=== PATIENT | male | born 1950 | race African-American/Black ===

== ENCOUNTER 2018-06-13 15:45 | Emergency (ER) | payer MEDICARE, BC ==
[~2018-06-13] VITALS: Ht 175.3 cm; Wt 83.9 kg
[~2018-06-13 15:45] MED LIST: ADALAT20 MG ORAL; KEFLEX500 MG ORAL; LISINOPRIL10 MG ORAL; NORCO 5-325 TA1 EACH PO; SOMA350 MG PO; VICODIN ES 7.51 EACH ORAL
[2018-06-13 15:55] VITALS: BP 190/93
[2018-06-13 16:10] VITALS: BP 175/85
[2018-06-13] MEDS ORDERED: HYDROcodone/Acetamin 10/325 tab ORAL ONE (16:15)
[2018-06-13 16:52] VITALS: BP 175/85
--- NOTE | 2018-06-13 17:36 | Emergency Room Report ---
History of Present Illness General Chief Complaint: Skin Rash/Abscess Source: Patient Present Illness HPI 68-year-old male presents ED complaining of right knee pain 1 day. States that he believes it is a Gary's cyst. Had a similar Gary's cyst in his left knee many years ago and had a drain. States it feels the same way. Pain is throbbing, 7 out of 10, nonradiating. Localized to the back of the knee. Denies any difficulty walking. Denies any fevers or chills. Denies any swelling. No other aggravating relieving factors. Denies any other associated symptoms Allergies: Coded Allergies: No Known Allergies (Unverified , 01/28/13) Patient History Past Medical History: HTN Past Surgical History: none Pertinent Family History: none Social History: Denies: smoking, alcohol use, drug use Immunizations: UTD Reviewed Nursing Documentation: PMH: Agreed; PSxH: Agreed Nursing Documentation-PMH Past Medical History: No History, Except For Hx Hypertension: Yes Review of Systems All Other Systems: negative except mentioned in HPI Physical Exam Vital Signs Date Time Temp Pulse Resp B/P (MAP) Pulse Ox O2 Delivery O2 Flow Rate FiO2 06/13/18 15:48 97.9 70 18 181/92 96 Room Air 97.9 Sp02 EP Interpretation: reviewed, normal General Appearance: no apparent distress, alert, GCS 15, non-toxic Head: normocephalic Eyes: bilateral eye normal inspection, bilateral eye PERRL ENT: normal ENT inspection Neck: normal inspection Respiratory: normal inspection Cardiovascular #1: normal inspection Gastrointestinal: normal inspection Rectal: deferred Genitourinary: no CVA tenderness Musculoskeletal: back normal, gait/station normal, normal range of motion, tender - TTP to posterior aspect R knee. no fluctuance or discharge Neurologic: alert, oriented x3, responsive, motor strength/tone normal, sensory intact, speech normal Psychiatric: judgement/insight normal, memory normal, mood/affect normal, no suicidal/homicidal ideation Skin: normal inspection Lymphatic: normal inspection Medical Decision Making Diagnostic Impression: Primary Impression: Bakers cyst Qualified Codes: M71.21 - Synovial cyst of popliteal space [Gary], right knee ER Course Hospital Course 68-year-old M presents to ED complaining of R knee pain Differential diagnoses include: Fracture, dislocation, sprain, contusion Clinical course Patient placed on stretcher. After initial history, physical exam reveals an elderly male in no acute distress. On exam there is tenderness to the posterior aspect of the right knee. Full range of motion to the knee noted. No bruising or crepitus. No fluctuance or discharge. Given history of Gary's cyst I ordered ultrasound of the knee which confirmed Gary's cyst behind the right knee. Scuffs findings with patient. Patient needs orthopedic referral to have cyst properly drained. I will provide orthopedic referral. Patient states he also has his own orthopedic surgeon to follow-up with. Diagnosis - bakers cyst Stable and discharged to home. weight bear as tolerated. Followup with orthopedics. Return to ED if symptoms recur or worsen CT/MRI/US Diagnostic Results CT/MRI/US Diagnostic Results : Imaging Test Ordered: US R knee Impression popliteal cyst behind R knee Last Vital Signs Date Time Temp Pulse Resp B/P (MAP) Pulse Ox O2 Delivery O2 Flow Rate FiO2 06/13/18 16:52 98.2 79 18 175/85 99 Room Air 208.8 Status: improved Disposition: HOME, SELF-CARE Condition: Stable Referrals: NON PHYSICIAN (PCP) Joseph Mendez MD Patient Instructions: Gary Cyst Ryan Nava MD Jun 13, 2018 17:36
--- NOTE | 2018-06-16 11:09 | Diagnostic Imaging Report ---
Indication: Right knee pain Technique: Grayscale and duplex images of the popliteal fossa Comparison: none Findings: 2 x 1.1 x 0.4 cm fluid collection is seen in the popliteal fossa Impression: 2. 1.1 x 0.4 cm popliteal fossa fluid collection, likely a small Gary's cyst This agrees with the preliminary interpretation provided overnight by [facility] service.
== END 2018-06-13 16:54 | disposition home or self-care (01) ==
LOC: EMR 16:27
DX: M71.21 Synovial cyst of popliteal space [Baker], right knee (principal)
CPT/HCPCS: 99284

== ENCOUNTER 2018-08-02 21:27 | Inpatient (IN) | payer BC, MEDICARE ==
[~2018-08-02] VITALS: Ht 175.3 cm; Wt 86.2 kg
--- NOTE | 2018-08-02 21:49 | Emergency Room Report ---
History of Present Illness General Chief Complaint: Lower Extremity Injury Source: Patient, Medical Record Present Illness HPI Patient is a 68-year-old male who presented after increased right great toe. Patient gradual onset of symptoms. Patient reports having increased pain after a 50 pound bag of cement the fell onto his great toe. Injury occurred approximately 6 hours prior to arrival. He reports being a smoker. He denies pain to his other portions of his feet. He had taken Percocet prior to arrival without any improvement.He reports having up-to-date tetanus vaccine. Allergies: Coded Allergies: PENICILLINS (Verified Allergy, Unknown, 08/02/18) Patient History Reviewed Nursing Documentation: PMH: Agreed; PSxH: Agreed Nursing Documentation-PMH Past Medical History: No History, Except For Hx Hypertension: Yes Review of Systems All Other Systems: negative except mentioned in HPI Physical Exam Vital Signs Date Time Temp Pulse Resp B/P (MAP) Pulse Ox O2 Delivery O2 Flow Rate FiO2 08/02/18 21:35 98.7 70 15 197/96 92 Room Air 98.8 General Appearance: well appearing, no apparent distress, alert, GCS 15 Head: normocephalic, atraumatic ENT: hearing grossly normal, normal voice Neck: full range of motion, supple Respiratory: no respiratory distress, speaking full sentences Musculoskeletal: swelling - laceration and swelling to right great toe Neurologic: normal inspection, alert, normal gait Psychiatric: mood/affect normal Skin: other - right great toe swelling bruising, nail discoloration and thickening Medical Decision Making Diagnostic Impression: Primary Impression: Crush injury of foot Additional Impressions: Injury of right great toe Open fracture ER Course Patient presented for toe injury. The differential diagnosis included was not limited to fracture, dislocation, contusion, crush injury, toenail avulsion among others. The patient was noted to have what appears to be some baseline fungal infection to his feet. The patient noted have significant soft tissue swelling and has a fracture of the distal phalanx. The patient given IV antibiotics. Wound is left open due to infection with fungus Dr. Lozano was contacted for inpatient managment due to panel physician. Labs Test 08/02/18 23:10 White Blood Count 8.0 K/UL (4.8-10.8) Red Blood Count 4.11 M/UL (4.70-6.10) Hemoglobin 14.2 G/DL (14.2-18.0) Hematocrit 39.3 % (42.0-52.0) Mean Corpuscular Volume 96 FL (80-99) Mean Corpuscular Hemoglobin 34.6 PG (27.0-31.0) Mean Corpuscular Hemoglobin Concent 36.2 G/DL (32.0-36.0) Red Cell Distribution Width 11.2 % (11.6-14.8) Platelet Count 174 K/UL (150-450) Mean Platelet Volume 6.7 FL (6.5-10.1) Neutrophils (%) (Auto) 59.3 % (45.0-75.0) Lymphocytes (%) (Auto) 30.4 % (20.0-45.0) Monocytes (%) (Auto) 7.6 % (1.0-10.0) Eosinophils (%) (Auto) 2.1 % (0.0-3.0) Basophils (%) (Auto) 0.6 % (0.0-2.0) Prothrombin Time 10.6 SEC (9.30-11.50) Prothromb Time International Ratio 1.0 (0.9-1.1) Activated Partial Thromboplast Time 28 SEC (23-33) Sodium Level 143 MMOL/L (136-145) Potassium Level 3.5 MMOL/L (3.5-5.1) Chloride Level 105 MMOL/L (98-107) Carbon Dioxide Level 29 MMOL/L (21-32) Anion Gap 9 mmol/L (5-15) Blood Urea Nitrogen 15 mg/dL (7-18) Creatinine 0.8 MG/DL (0.55-1.30) Estimat Glomerular Filtration Rate > 60 mL/min (>60) Glucose Level 109 MG/DL (74-106) Calcium Level 8.9 MG/DL (8.5-10.1) Total Bilirubin 0.3 MG/DL (0.2-1.0) Aspartate Amino Transf (AST/SGOT) 32 U/L (15-37) Alanine Aminotransferase (ALT/SGPT) 43 U/L (12-78) Alkaline Phosphatase 77 U/L (46-116) Total Protein 7.0 G/DL (6.4-8.2) Albumin 3.4 G/DL (3.4-5.0) Globulin 3.6 g/dL Albumin/Globulin Ratio 0.9 (1.0-2.7) Last Vital Signs Date Time Temp Pulse Resp B/P (MAP) Pulse Ox O2 Delivery O2 Flow Rate FiO2 08/02/18 21:35 98.7 70 15 197/96 92 Room Air 98.8 Status: unchanged Disposition: ADMITTED INPATIENT Condition: Serious Noe Yao MD Aug 02, 2018 21:49
[2018-08-02] MEDS ORDERED: Ketorolac 60mg Inj IM ONE (22:45)
[2018-08-02] MEDS ORDERED: Bacitracin Oint UD TOPIC ONE ×2 (23:02→23:15)
[2018-08-02 23:35] LABS: BASOPHILS % (AUTO) 0.6 % (0.0-2.0); EOSINOPHILS % (AUTO) 2.1 % (0.0-3.0); HEMATOCRIT 39.3 % (42.0-52.0); HEMOGLOBIN 14.2 G/DL (14.2-18.0); LYMPHOCYTES % (AUTO) 30.4 % (20.0-45.0); MEAN CORPUSCULAR VOLUME 96 FL (80-99); MONOCYTES % (AUTO) 7.6 % (1.0-10.0); NEUTROPHILS % (AUTO) 59.3 % (45.0-75.0); PLATELET COUNT 174 K/UL (150-450); RED BLOOD COUNT 4.11 M/UL (4.70-6.10); RED CELL DISTRIBUTION WIDTH 11.2 % (11.6-14.8)
[2018-08-02 23:41] LABS: ANION GAP 9 mmol/L (5-15); BLOOD UREA NITROGEN 15 mg/dL (7-18); CALCIUM 8.9 MG/DL (8.5-10.1); CARBON DIOXIDE 29 MMOL/L (21-32); CHLORIDE 105 MMOL/L (98-107); CREATININE 0.8 MG/DL (0.55-1.30); POTASSIUM 3.5 MMOL/L (3.5-5.1); SODIUM 143 MMOL/L (136-145)
[2018-08-02 23:49] LABS: ALANINE AMINOTRANSFERASE 43 U/L (12-78); ALBUMIN 3.4 G/DL (3.4-5.0); ALBUMIN/GLOBULIN RATIO 0.9 (1.0-2.7); ALKALINE PHOSPHATASE 77 U/L (46-116); ASPARTATE AMINO TRANSFERASE 32 U/L (15-37); BILIRUBIN,TOTAL 0.3 MG/DL (0.2-1.0)
[2018-08-03] MEDS ORDERED: Azithromycin 500 MG in D5W 275 ML IVPB ONE (00:15)
[2018-08-03 02:29] VITALS: BP 152/87
[2018-08-03 04:00] VITALS: BP 155/83
[2018-08-03 08:20] VITALS: BP 166/86
--- NOTE | 2018-08-03 08:58 | Infectious Diseases Prog Note ---
Assessment/Plan Problems: (1) Injury of right great toe Assessment & Plan: with open wound , will start vancomycin and levaquin empirically , continue local wound care and dressings change as per print project manager (2) Onychomycosis Assessment & Plan: will start lamisil for 12 weeks (3) Fracture of distal phalanx of great toe Assessment & Plan: closed, continue pain management and weight bearing as per print project manager Subjective Allergies: Coded Allergies: PENICILLINS (Verified Allergy, Unknown, 08/02/18) Objective Vital Signs Last 24 Hour Vital Signs Date Time Temp Pulse Resp B/P (MAP) Pulse Ox O2 Delivery O2 Flow Rate FiO2 08/03/18 08:20 98.5 55 17 166/86 (112) 95 98.5 08/03/18 08:06 55 166/86 08/03/18 08:05 166/86 08/03/18 04:00 98.8 60 20 155/83 (107) 97 98.8 08/03/18 03:05 Room Air 08/03/18 02:29 97.7 64 20 152/87 (108) 99 97.7 08/02/18 22:49 98.7 08/02/18 21:35 98.7 70 15 197/96 92 Room Air 98.8 Height (Feet): 5 Height (Inches): 9.00 Weight (Pounds): 190 Laboratory Tests Test 08/02/18 23:10 White Blood Count 8.0 K/UL (4.8-10.8) Red Blood Count 4.11 M/UL (4.70-6.10) L Hemoglobin 14.2 G/DL (14.2-18.0) Hematocrit 39.3 % (42.0-52.0) L Mean Corpuscular Volume 96 FL (80-99) Mean Corpuscular Hemoglobin 34.6 PG (27.0-31.0) H Mean Corpuscular Hemoglobin Concent 36.2 G/DL (32.0-36.0) H Red Cell Distribution Width 11.2 % (11.6-14.8) L Platelet Count 174 K/UL (150-450) Mean Platelet Volume 6.7 FL (6.5-10.1) Neutrophils (%) (Auto) 59.3 % (45.0-75.0) Lymphocytes (%) (Auto) 30.4 % (20.0-45.0) Monocytes (%) (Auto) 7.6 % (1.0-10.0) Eosinophils (%) (Auto) 2.1 % (0.0-3.0) Basophils (%) (Auto) 0.6 % (0.0-2.0) Prothrombin Time 10.6 SEC (9.30-11.50) Prothromb Time International Ratio 1.0 (0.9-1.1) Activated Partial Thromboplast Time 28 SEC (23-33) Sodium Level 143 MMOL/L (136-145) Potassium Level 3.5 MMOL/L (3.5-5.1) Chloride Level 105 MMOL/L (98-107) Carbon Dioxide Level 29 MMOL/L (21-32) Anion Gap 9 mmol/L (5-15) Blood Urea Nitrogen 15 mg/dL (7-18) Creatinine 0.8 MG/DL (0.55-1.30) Estimat Glomerular Filtration Rate > 60 mL/min (>60) Glucose Level 109 MG/DL (74-106) H Calcium Level 8.9 MG/DL (8.5-10.1) Total Bilirubin 0.3 MG/DL (0.2-1.0) Aspartate Amino Transf (AST/SGOT) 32 U/L (15-37) Alanine Aminotransferase (ALT/SGPT) 43 U/L (12-78) Alkaline Phosphatase 77 U/L (46-116) Total Protein 7.0 G/DL (6.4-8.2) Albumin 3.4 G/DL (3.4-5.0) Globulin 3.6 g/dL Albumin/Globulin Ratio 0.9 (1.0-2.7) L Current Medications Medications (Trade) Dose Ordered Sig/Rody Route PRN Reason Start Time Stop Time Status Last Admin Dose Admin Famotidine (Pepcid) 20 mg BID ORAL 08/03/18 09:00 09/02/18 08:59 08/03/18 08:05 Heparin Sodium (Porcine) (Heparin 5000 units/ml) 5,000 units EVERY 12 HOURS SUBQ 08/03/18 09:00 09/02/18 08:59 08/03/18 08:18 Lisinopril (Zestril) 10 mg DAILY ORAL 08/03/18 09:00 09/02/18 08:59 08/03/18 08:05 Morphine Sulfate (Morphine Sulfate) 2 mg Q6H PRN IVP Severe Pain (Pain Scale 7-10) 08/03/18 03:30 08/10/18 03:29 Nifedipine (Adalat) 20 mg DAILY ORAL 08/03/18 09:00 09/02/18 08:59 08/03/18 08:06 Oxycodone/ Acetaminophen (Percocet 10/325) 1 tab Q6H PRN ORAL Moderate Pain (Pain Scale 4-6) 08/03/18 03:30 08/10/18 03:29 08/03/18 08:06 Bertrand Moulton M.D. Aug 03, 2018 08:58
[2018-08-03] MEDS ORDERED: Lisinopril 10mg tab ORAL SCH (09:00)
[2018-08-03] MEDS ORDERED: Heparin 5000 units/ml inj SUBQ SCH (09:00)
[2018-08-03] MEDS ORDERED: NIFEdipine 10mg cap ORAL SCH (09:00)
[2018-08-03] MEDS ORDERED: Vancomycin 1.5 GM/D5W 250ML IVPB SCH (11:00)
--- NOTE | 2018-08-03 11:01 | Diagnostic Imaging Report ---
Indication: Acute hallux injury pain Comparison: None Findings: There is a fracture of the distal first phalanges. Fracture appears intra-articular and comminuted. Soft tissue swelling noted. There is an old healed fracture of the fourth metatarsal. IMPRESSION: Acute fracture of the first distal phalange
[2018-08-03 12:00] VITALS: BP 160/83
[2018-08-03] MEDS: Morphine Sulfate 2mg/ml Inj IVP PRN ×2 (12:59→18:52)
--- NOTE | 2018-08-03 14:30 | History & Physical ---
History and Physical History & Physicial seen and examined. Full HP Dictated Selin Lozano MD Aug 03, 2018 14:30
--- NOTE | 2018-08-03 14:32 | General Progress Note ---
Assessment/Plan Assessment/Plan 1- Acute Right Toe Fx Plan: Tacker Off- Dr Andrews is consulted Subjective Allergies: Coded Allergies: PENICILLINS (Verified Allergy, Unknown, 08/02/18) Objective Last 24 Hour Vital Signs Date Time Temp Pulse Resp B/P (MAP) Pulse Ox O2 Delivery O2 Flow Rate FiO2 08/03/18 12:00 98.2 61 17 160/83 (108) 95 98.2 08/03/18 09:00 Room Air 08/03/18 08:20 98.5 55 17 166/86 (112) 95 98.5 08/03/18 08:06 55 166/86 08/03/18 08:05 166/86 08/03/18 04:00 98.8 60 20 155/83 (107) 97 98.8 08/03/18 03:05 Room Air 08/03/18 02:29 97.7 64 20 152/87 (108) 99 97.7 08/02/18 22:49 98.7 08/02/18 21:35 98.7 70 15 197/96 92 Room Air 98.8 Intake and Output 08/02/18 08/03/18 19:00 07:00 Output Total 200 ml Balance -200 ml Output Urine Total 200 ml Laboratory Tests 08/02/18 23:10: White Blood Count 8.0, Red Blood Count 4.11L, Hemoglobin 14.2, Hematocrit 39.3L , Mean Corpuscular Volume 96, Mean Corpuscular Hemoglobin 34.6H, Mean Corpuscular Hemoglobin Concent 36.2H, Red Cell Distribution Width 11.2L, Platelet Count 174, Mean Platelet Volume 6.7, Neutrophils (%) (Auto) 59.3, Lymphocytes (%) (Auto) 30.4, Monocytes (%) (Auto) 7.6, Eosinophils (%) (Auto) 2.1, Basophils (%) (Auto) 0.6, Prothrombin Time 10.6, Prothromb Time International Ratio 1.0, Activated Partial Thromboplast Time 28, Sodium Level 143, Potassium Level 3.5, Chloride Level 105, Carbon Dioxide Level 29, Anion Gap 9, Blood Urea Nitrogen 15, Creatinine 0.8, Estimat Glomerular Filtration Rate > 60, Glucose Level 109H, Calcium Level 8.9, Total Bilirubin 0.3, Aspartate Amino Transf (AST/SGOT) 32, Alanine Aminotransferase (ALT/SGPT) 43, Alkaline Phosphatase 77, Total Protein 7.0, Albumin 3.4, Globulin 3.6, Albumin/ Globulin Ratio 0.9L Height (Feet): 5 Height (Inches): 9.00 Weight (Pounds): 190 Selin Lozano MD Aug 03, 2018 14:32
--- NOTE | 2018-08-03 15:18 | Consultation ---
Consult Note Assessment/Plan A/ 1) Fracture distal phalanx right hallux - not open 2) Crush injury right hallux 3) Mycosis P/ 1) No surgical intervention is indicated 2) Wound care ordered to consist of cleaning with NS, and painting site with betadine and mild compression 3) Abx per ID 4) Will follow as out patient 5) WB as tolerated right foot with post op shoe Thank you Jimmy Escobar DPM Aug 03, 2018 15:18
[2018-08-03 16:00] VITALS: BP 168/97
[2018-08-03] MEDS ORDERED: Vancomycin 750mg/NS 250ml IVPB SCH (19:00)
--- NOTE | 2018-08-03 22:45 | Consultation ---
DATE OF CONSULTATION: 08/03/2018 CONSULTING PHYSICIAN: Jimmy Andrews D.P.M. REQUESTING PHYSICIAN: Selin Lozano M.D. REASON FOR CONSULTATION: Crush injury of the right foot. HISTORY OF PRESENT ILLNESS: The patient is a 68-year-old male who was admitted to [facility] on 08/03/2018 for a crush injury. The patient states that he was trying to lift cement bag that might have hardened with recent rains and as he was lifting the ____ the garbage, the bag tore and the cement block fell on his foot noted immediate bleeding and sought emergent care. PAST MEDICAL HISTORY: Unremarkable. MEDICATIONS: Per MAR and include vancomycin and levofloxacin. ALLERGIES: He is allergic to penicillin. FAMILY HISTORY: Noncontributory. SOCIAL HISTORY: Noncontributory. REVIEW OF SYSTEMS: HEENT: The patient denies any headaches, blurred vision, or ringing in the ears. CARDIORESPIRATORY: The patient denies any chest pain or shortness of breath. GENITOURINARY: The patient denies any urgency, frequency, or burning upon urination or hematuria. GASTROINTESTINAL: The patient denies any constipation, diarrhea, or blood in the stool. PHYSICAL EXAMINATION: VITAL SIGNS: Temperature is 98.2, pulse is 61, respiration rate is 17, blood pressure is 160/83, and saturating 95% on room air. EXTREMITIES: Lower extremity physical exam, vascular, palpable pedal pulses noted bilaterally. Feet are equally warm. Capillary filling time is instantaneous bilateral. DERMATOLOGICAL: Ecchymosis and edema is noted in the right hallux. There is minimal to mild bleeding noted from the hallux nail. The hallux nail is not completely detached. No open wounds are noted except for small cut that bleeding is noted through. Remaining dermatological exam is unremarkable. There is no erythema noted to the right foot. MUSCULOSKELETAL: The patient has 4/5 muscle strength noted anterior lateral and posterior muscle groups of bilateral lower extremities. No gross deformity is noted. Right hallux is rectus. NEUROLOGICAL: Protective thresholds intact. LABORATORY DATA: White blood cell count is 8.0, hemoglobin and hematocrit is 14.2 and 39.3, and platelet count is 174. BUN is 1.5, creatinine is 0.8, potassium is 3.5, glucose is 109, and albumin is 3.4. INR is 1.0 and PT is 10.6. Imaging of the right foot shows acute fracture of the distal phalanx, appears to be intraarticular and comminuted. There is an old fracture of the fourth metatarsal noted. ASSESSMENT: 1. Fracture of distal phalanx, right hallux-not open. 2. Crush injury, right hallux. 3. Mycosis. PLAN: 1. Surgical intervention at this point is not indicated. 2. Wound care was ordered to consist of cleaning the site with normal saline, ____ the site with Betadine, mild compression. 3. Antibiotics per ID. 4. Weightbearing as tolerated to right foot with postoperative shoe. 5. We will follow the patient as outpatient. Thank you for the courtesy of this consultation, Dr. Lozano. Jimmy Andrews D.P.M. DR: CATIE JOB#: [id number] CC:
--- NOTE | 2018-08-03 23:00 | History and Physical Report ---
DATE OF ADMISSION: 08/03/2018 SOURCE OF INFORMATION: Patient and EMR. HISTORY OF PRESENT ILLNESS: The patient is a pleasant 68-year-old male with the unremarkable past medical history. The patient reported secondary to a fall of a heavy object on his right toe. He came to the ER. Initial evaluation in the emergency room showed pain and uncontrolled level of blood pressure. The initial x-ray of the right toe shows the acute fracture of the first distal phalanx/toe and the patient is admitted for further evaluation. PAST MEDICAL HISTORY: Hypertension, COPD, and heavy smoking history. MEDICATIONS: Current hospital medications including, but not limited to, lisinopril and nifedipine. ALLERGIES: Penicillin. SOCIAL HISTORY: Positive for more than 35 pack per year history of smoking. Denies history of illicit drug abuse or alcohol abuse. PHYSICAL EXAMINATION: VITAL SIGNS: Blood pressure 190/80, temperature 98.2, pulse ox 98% on room air, and respiratory rate 18. HEAD AND NECK: Atraumatic and normocephalic. CHEST: Clear to auscultation. Chest sounds is clear. No wheezing. HEART: S1, S2. Regular rate and rhythm. Negative for S3 /S4 ABDOMEN: Soft. No organomegaly. Bowel sounds are normal. MUSCULOSKELETAL: No gross lateralized motor deficit. NEUROLOGY: The patient is awake, alert, and oriented x3. LABORATORY AND DIAGNOSTIC DATA: Labs dated 08/02/2018 shows WBC 8, hemoglobin 14.2, and platelet count of 174,000. Sodium 142, potassium 3.5. ASSESSMENT: 1. Acute trauma-induced right toe fracture. 2. Hypertension. 3. Chronic obstructive pulmonary disease-clinical diagnosis. 4. Gastrointestinal and deep vein thrombosis prophylaxis. PLAN OF CARE: We will continue with the current management. We will resume the home medications. Health Insurance Agent, Dr. Andrews has been consulted. Selin Lozano M.D. DR: NORMA JOB#: [id number] CC: JOLANTA
--- NOTE | 2018-08-03 23:15 | Consultation ---
DATE OF CONSULTATION: 08/03/2018 INFECTIOUS DISEASE CONSULTATION CONSULTING PHYSICIAN: Bertrand Moulton M.D. REQUESTING PHYSICIAN: Selin Lozano M.D. REASON FOR CONSULTATION: Right big toe skin injury with open wound, possible infection. Recommendation for antibiotics treatment. HISTORY OF PRESENT ILLNESS: The patient is a 68-year-old male with past medical history of hypertension, presented to [facility] with progressive right big toe pain, swelling, and redness after he dropped cement on his right big toe. The patient was getting 50-pound bag of cement, which fell on his right great big toe and he sustained injury about six hours before arrival to the emergency room. Big toe seems to be red and inflamed the root of his toenail. X-ray of the big toe showed evidence of distal phalanx fracture. The patient was given antibiotics and Infectious Disease consultation was requested for antibiotics treatment and further management. REVIEW OF SYSTEMS: A 14-point of system reviewed were all negative apart from the one I mentioned above in my H and P. PAST MEDICAL HISTORY: Significant for hypertension. PAST SURGICAL HISTORY: Negative. SOCIAL HISTORY: The patient works in construction. He is a smoker, currently smoking. Denied using any drugs or alcohol. FAMILY HISTORY: Noncontributory. ALLERGIES: He is allergic to penicillin. MEDICATIONS: The patient received azithromycin in the emergency room. For the rest of his medications, please refer to the MARs. LABORATORY AND DIAGNOSTIC DATA: Labs showed white count of 8000, hemoglobin of 14.2, and platelet count of 174,000. BUN of 15 and creatinine of 0.8. AST of 32 and ALT of 43. Imaging, right foot x-ray showed acute fracture of the first distal phalanx. PHYSICAL EXAMINATION: VITAL SIGNS: Temperature 98.2, pulse 61, respirations 17, blood pressure 160/83, and saturation 95% on room air. GENERAL: Middle-aged male, lying in bed complaining of right big toe pain. He is not in acute distress. HEENT: Normocephalic and atraumatic. Pupils are reactive to light. Moist oral mucosa. No exudate. NECK: Supple. No lymphadenopathy. CARDIOVASCULAR: Regular rate and rhythm. No murmur or gallop. LUNGS: Clear bilaterally. No wheezing or rhonchi. ABDOMEN: Soft, nontender, and nondistended. Normal bowel sounds. No hepatosplenomegaly or ascites. EXTREMITIES: No edema or cyanosis. Right big toe swelling and edema with wound on the root of his big toenail. Mild oozing out of the big toe. Decreased range of motion in the big toe joint with mild numbness. ASSESSMENT AND RECOMMENDATIONS: 1. Injury of the right big toe with open wound. We will start the patient on vancomycin and Levaquin empirically. Continue local wound care and dressing change as per bed control specialist. 2. Onychomycosis. We will start the patient on Lamisil for 12 weeks course of treatment. Continue local care. Follow up with bed control specialist. 3. Fracture of the distal phalanx of the great toe, closed, not opened. Continue pain management and weightbearing as per bed control specialist's recommendation. Thank you for the consult. ID will continue to follow. Bertrand Moulton M.D. DR: PETER JOB#: [id number] CC:
[2018-08-04] MEDS ORDERED: Lisinopril 20mg tab ORAL SCH (09:00)
--- NOTE | 2018-08-05 13:14 | Discharge Summary ---
Discharge Summary Discharge Summary _ DATE OF ADMISSION: 08/03/2018 DATE OF DISCHARGE: 08/03/2018. Patient left AGAINST MEDICAL ADVICE. AMA REASON FOR ADMISSION: 68 years old male with past medical history of HTN and COPD reported fall of a heavy object on his right toe. Patient came to emergency room for evaluation. Initial evaluation revealed uncontrolled blood pressure. X-ray of the right toe showed acute fracture of the first distal phalanx/toe. Patient was admitted for further management with diagnoses of acute trauma induced right toe fracture, hypertension, COPD. CONSULTANTS: ID specialist dr Moulton assistant professor of life sciences dr Rendon [facility] COURSE: Patient admitted and started on empiric antibiotic. Infectious disease specialist closely followed. Pain management was addressed . DVT and GI prophylaxis provided. Podiatry seen and evaluated patient. Wound care provided as per assistant professor of life sciences recommendations. Postoperative shoe provided. Produce Wrapper recommended weightbearing as tolerated to right foot while wearing postoperative shoe. Produce Wrapper recommended to follow up with assistant professor of life sciences as outpatient. Blood pressure was managed with RODDY inhibitor and calcium channel franco , and remained stable. Patient started on Lamisil for onychomycosis . Patient decided to leave AGAINST MEDICAL ADVICE . The risks and consequences of signing AGAINST MEDICAL ADVICE were discussed with patient in detail. Patient verbalized understanding, declined to sign AMA form f and left. FINAL DIAGNOSES: Acute trauma induced right toe fracture Fracture of distal phalanx, right hallux, not open Crush injury, right hallux Onychomycosis Hypertension COPD I have been assigned to dictate discharge summary for this account. I was not involved in the patient's management. Teresita Qiu NP Aug 05, 2018 13:14
== END 2018-08-03 20:40 | disposition left against medical advice (07) | DRG 563 ==
LOC: EMR 22:12 → 4E 08-03 00:53 → EDBEDREQ 08-03 01:26
DX: S92.421A Displaced fracture of distal phalanx of right great toe, initial encounter for closed fracture (principal); S97.111A Crushing injury of right great toe, initial encounter; W22.8XXA Striking against or struck by other objects, initial encounter; I10 Essential (primary) hypertension; J44.9 Chronic obstructive pulmonary disease, unspecified; Z88.0 Allergy status to penicillin; F17.200 Nicotine dependence, unspecified, uncomplicated; B35.1 Tinea unguium
CPT/HCPCS: 36415; 80053; 85025; 85610; 85730; 96372; 99285

== ENCOUNTER 2018-08-17 14:45 | Outpatient (RCR) | payer MEDICARE, BC | END 2018-09-10 | disposition home or self-care (01) | LOC: WCC 14:45 | DX: L97.511 Non-pressure chronic ulcer of other part of right foot limited to breakdown of skin (principal); S97.111D Crushing injury of right great toe, subsequent encounter; S92.424D Nondisplaced fracture of distal phalanx of right great toe, subsequent encounter for fracture with routine healing; F17.200 Nicotine dependence, unspecified, uncomplicated | CPT/HCPCS: G0463 ==

== ENCOUNTER 2019-02-28 17:54 | Emergency (ER) | payer BC, MEDICARE ==
[~2019-02-28] VITALS: Ht 175.3 cm; Wt 88.9 kg
[2019-02-28 18:30] VITALS: BP 190/109
--- NOTE | 2019-02-28 18:30 | NUR ---
ED Nurse Note: pts walked in with c/o confusion x 5 days, pt wife3 stated that pt stopped taking lisinopril and begun to be confuse. pt able to identify self. pt doest know the purpose and the month. seen by martha. blood drawn adn was sent to lab. will continue to monitor.
--- NOTE | 2019-02-28 18:34 | NUR ---
ED Nurse Note: pt went to ct with tech
[2019-02-28 18:48] LABS: BASOPHILS % (AUTO) 0.9 % (0.0-2.0); EOSINOPHILS % (AUTO) 2.1 % (0.0-3.0); HEMATOCRIT 42.2 % (42.0-52.0); LYMPHOCYTES % (AUTO) 21.1 % (20.0-45.0); MEAN CORPUSCULAR VOLUME 94 FL (80-99); NEUTROPHILS % (AUTO) 68.9 % (45.0-75.0); PLATELET COUNT 186 K/UL (150-450); RED BLOOD COUNT 4.48 M/UL (4.70-6.10); RED CELL DISTRIBUTION WIDTH 11.3 % (11.6-14.8); WHITE BLOOD COUNT 7.8 K/UL (4.8-10.8)
[2019-02-28 19:00] LABS: ANION GAP 8 mmol/L (5-15); BLOOD UREA NITROGEN 16 mg/dL (7-18); CALCIUM 9.5 MG/DL (8.5-10.1); CARBON DIOXIDE 30 MMOL/L (21-32); CHLORIDE 104 MMOL/L (98-107); CREATININE 0.8 MG/DL (0.55-1.30); POTASSIUM 3.9 MMOL/L (3.5-5.1); SODIUM 142 MMOL/L (136-145)
[2019-02-28 19:04] LABS: ALANINE AMINOTRANSFERASE 49 U/L (12-78); ALBUMIN/GLOBULIN RATIO 1.2 (1.0-2.7); ALKALINE PHOSPHATASE 90 U/L (46-116); ASPARTATE AMINO TRANSFERASE 35 U/L (15-37); BILIRUBIN,TOTAL 0.5 MG/DL (0.2-1.0); CHOLESTEROL 217 MG/DL (< 200); HDL CHOLESTEROL 55 MG/DL (40-60); TRIGLYCERIDES 118 MG/DL (30-150)
[2019-02-28 19:15] VITALS: BP 143/116
--- NOTE | 2019-02-28 19:21 | NUR ---
ED Nurse Note: RECEIVED PATIENT FROM [facility]. PATIENT RESTING IN BED WITH NO ACUTE DISTRESS.
[2019-02-28 20:45] VITALS: BP 143/116
--- NOTE | 2019-02-28 20:45 | NUR ---
AMA: SEE AMA FORM. PATIENT REFUSED TO GET ADMITTED. STATES "I WANT TO GO HOME. I DONT WANT TO GET ADMITTED. I AM FINE." ACCOMPANIED BY FAMILY MEMBER.
--- NOTE | 2019-02-28 21:18 | Emergency Room Report ---
History of Present Illness General Chief Complaint: Behavioral Complaint Source: Patient Present Illness HPI 68-year-old male presents ED for evaluation. Patient brought in by . States that he's been "hallucinating" all day. Acting strange. Saying odd things. Patient states that he's been feeling dizzy and with slurred speech. Patient states that his lisinopril was discontinued by PMD last week. States that his blood pressure has been high since. States he's been feeling this way for last 4 days. Denies chest pain or shortness of breath. No other aggravating relieving factors. Denies any other associated symptoms Allergies: Coded Allergies: PENICILLINS (Verified Allergy, Unknown, 08/02/18) Patient History Past Medical History: HTN Past Surgical History: other - back surgery Pertinent Family History: none Social History: Denies: smoking, alcohol use, drug use Immunizations: UTD Reviewed Nursing Documentation: PMH: Agreed; PSxH: Agreed Nursing Documentation-PMH Past Medical History: No History, Except For Hx Cardiac Problems: Yes - BACK SURGERY L4-L5 FUSION Hx Hypertension: Yes - Hypertension Hx Cancer: No Hx Gastrointestinal Problems: No Hx Neurological Problems: No Review of Systems All Other Systems: negative except mentioned in HPI Physical Exam Vital Signs Date Time Temp Pulse Resp B/P (MAP) Pulse Ox O2 Delivery O2 Flow Rate FiO2 02/28/19 18:13 98.2 87 22 94 Room Air 02/28/19 18:30 190/109 Sp02 EP Interpretation: reviewed, normal General Appearance: no apparent distress, GCS 15, non-toxic, lethargic Head: normocephalic, atraumatic Eyes: bilateral eye normal inspection, bilateral eye PERRL, bilateral eye EOMI ENT: hearing grossly normal, normal pharynx, no angioedema, normal voice Neck: full range of motion, supple/symm/no masses Respiratory: chest non-tender, lungs clear, normal breath sounds, speaking full sentences Cardiovascular #1: regular rate, rhythm, no edema Cardiovascular #2: 2+ carotid (R), 2+ carotid (L), 2+ radial (R), 2+ radial (L) , 2+ dorsalis pedis (R), 2+ dorsalis pedis (L) Gastrointestinal: normal bowel sounds, non tender, soft, non-distended, no guarding, no rebound Rectal: deferred Genitourinary: normal inspection, no CVA tenderness Musculoskeletal: back normal, gait/station normal, normal range of motion, non- tender Neurologic: oriented x3, household coordinator III-XII nml as tested, other - ataxia noted on left Psychiatric: judgement/insight normal, memory normal, mood/affect normal, no suicidal/homicidal ideation Reflexes: 3+ bicep (R), 3+ bicep (L), 3+ tricep (R), 3+ tricep (L), 3+ knee (R) , 3+ knee (L) Skin: normal color, no rash, warm/dry, well hydrated Lymphatic: no adenopathy Medical Decision Making Diagnostic Impression: Primary Impression: Hypertension Qualified Codes: I10 - Essential (primary) hypertension Additional Impression: Ataxia ER Course Hospital Course 68 yo M presents to ED with dizziness, slurred speech, high BP Differential diagnoses include: UT/unstable angina, SVT/Vtach/AFib, CVA/TIA Clinical course Patient placed on stretcher. on threat monitoring analyst. After initial history and physical I ordered labs, EKG, chest x-ray, and CT head labs reviewed- electrolytes ok, troponins negative, no leukocytosis, Hb/Hct stable Chest x-ray- no acute process EKG- NSR, no acute ischemic changes interpreted by me CT brain - no acute process noted Consideration for CVA. Based on wifes timeline last known well time was yesterday. Based on patient's timeline last known well time was 5 days ago. Patient is not a candidate for TPA or thrombolytic therapy. Patient given hydralazine for elevated BP. Patient was accepted for transfer to contracted facility. Patient stated that he wants to leave Understands the risks of leaving. Patient has competency to make his own decisions. at bedside. Signed AMA form. I. I feel this is a highly complex case requiring extensive working including EKG/Rhythm strip, Xray/CT/US, Blood/urine lab work, repeat exams while in ED, and administration of strong opiates/narcotics for pain control, admission to hospital or close patient follow up. Diagnosis - hypertension, ataxia patient left AMA Labs Test 02/28/19 18:30 White Blood Count 7.8 K/UL (4.8-10.8) Red Blood Count 4.48 M/UL (4.70-6.10) Hemoglobin 15.0 G/DL (14.2-18.0) Hematocrit 42.2 % (42.0-52.0) Mean Corpuscular Volume 94 FL (80-99) Mean Corpuscular Hemoglobin 33.6 PG (27.0-31.0) Mean Corpuscular Hemoglobin Concent 35.7 G/DL (32.0-36.0) Red Cell Distribution Width 11.3 % (11.6-14.8) Platelet Count 186 K/UL (150-450) Mean Platelet Volume 5.8 FL (6.5-10.1) Neutrophils (%) (Auto) 68.9 % (45.0-75.0) Lymphocytes (%) (Auto) 21.1 % (20.0-45.0) Monocytes (%) (Auto) 7.0 % (1.0-10.0) Eosinophils (%) (Auto) 2.1 % (0.0-3.0) Basophils (%) (Auto) 0.9 % (0.0-2.0) Prothrombin Time 10.6 SEC (9.30-11.50) Prothromb Time International Ratio 1.0 (0.9-1.1) Activated Partial Thromboplast Time 29 SEC (23-33) Sodium Level 142 MMOL/L (136-145) Potassium Level 3.9 MMOL/L (3.5-5.1) Chloride Level 104 MMOL/L (98-107) Carbon Dioxide Level 30 MMOL/L (21-32) Anion Gap 8 mmol/L (5-15) Blood Urea Nitrogen 16 mg/dL (7-18) Creatinine 0.8 MG/DL (0.55-1.30) Estimat Glomerular Filtration Rate > 60 mL/min (>60) Glucose Level 101 MG/DL (74-106) Calcium Level 9.5 MG/DL (8.5-10.1) Total Bilirubin 0.5 MG/DL (0.2-1.0) Aspartate Amino Transf (AST/SGOT) 35 U/L (15-37) Alanine Aminotransferase (ALT/SGPT) 49 U/L (12-78) Alkaline Phosphatase 90 U/L (46-116) Troponin I 0.007 ng/mL (0.000-0.056) Total Protein 7.4 G/DL (6.4-8.2) Albumin 4.0 G/DL (3.4-5.0) Globulin 3.4 g/dL Albumin/Globulin Ratio 1.2 (1.0-2.7) Triglycerides Level 118 MG/DL (30-150) Cholesterol Level 217 MG/DL (< 200) LDL Cholesterol 130 mg/dL (<100) HDL Cholesterol 55 MG/DL (40-60) Cholesterol/HDL Ratio 3.9 (3.3-4.4) Serum Alcohol < 3 mg/dL EKG Diagnostic Results Rate: normal Rhythm: NSR ST Segments: no acute changes ASA given to the pt in ED: No Rhythm Strip Diag. Results EP Interpretation: yes Rhythm: NSR, no PVC's, no ectopy Chest X-Ray Diagnostic Results Chest X-Ray Diagnostic Results : Chest X-Ray Ordered: Yes # of Views/Limited/Complete: 1 View Indication: Chest Pain EP Interpretation: Yes Interpretation: no consolidation, no effusion, no pneumothorax, no acute cardiopulmonary disease Impression: No acute disease Electronically Signed by: Electronically signed by Ryan Nava MD CT/MRI/US Diagnostic Results CT/MRI/US Diagnostic Results : Imaging Test Ordered: CT head Impression no acute process Last Vital Signs Date Time Temp Pulse Resp B/P (MAP) Pulse Ox O2 Delivery O2 Flow Rate FiO2 02/28/19 20:45 98.2 87 21 143/116 100 Room Air Status: improved Disposition: AGAINST MEDICAL ADVICE Condition: Serious Referrals: [facility],REFERRING (PCP) Ryan Nava MD February 28, 2019 21:18
--- NOTE | 2019-03-01 09:11 | Diagnostic Imaging Report ---
Indication: Headache Technique: Contiguous 5 mm thick transaxial imaging of the head obtained in a Siemens Sensation [address] scanner. Soft tissue and bone windows generated. Automatic Exposure Control was utilized. Total Dose length Product (DLP): 1365.[address] Dose Index Volume (CTDIvol): 70.38 mGy Comparison: 09/11/2010 Findings: The size and configuration of the cortical sulci, basal cisterns, and ventricles are within normal limits for age. There is no mass effect, midline shift, or edema identified. There is no evidence of acute hemorrhage or abnormal intra-axial or extra-axial fluid collections. The bones and soft tissues are unremarkable. Impression: No mass effect, edema or acute bleed. The CT scanner at [facility] is accredited by the [employer] and the scans are performed using dose optimization techniques as appropriate to a performed exam including Automatic Exposure control.
--- NOTE | 2019-03-01 09:41 | Diagnostic Imaging Report ---
Indication: Dyspnea Comparison: 09/11/2010 A single view chest radiograph was obtained. Findings: Cardiomediastinal appearance is within normal limits for age. The lungs are clear. Pulmonary vascularity is appropriate. The diaphragmatic contour is smooth and costophrenic angles are sharp. No pleural effusions are identified. The bones are unremarkable. Impression: No acute findings
--- NOTE | 2019-03-02 20:26 | Cardiology Report ---
APPROVED REPORT EKG Measurement Heart [id number] Normal sinus rhythm Minimal voltage criteria for LVH, may be normal variant Borderline ECG
== END 2019-02-28 20:45 | disposition left against medical advice (07) ==
LOC: EDBEDREQ 18:32 → EMR 18:50 → CANBEDREQ 20:55
DX: I10 Essential (primary) hypertension (principal); R27.0 Ataxia, unspecified; R44.3 Hallucinations, unspecified; Z88.0 Allergy status to penicillin; Z98.1 Arthrodesis status
CPT/HCPCS: 70450; 71045; 80053; 80061; 84484; 85025; 85610; 85730; 93005; 96374; 99284; G0480; J0360; 80329